=== PATIENT | male | born 1985 | race Caucasian/White ===

== ENCOUNTER 2018-10-18 13:41 | Emergency (ER) | payer SELFPAY ==
[~2018-10-18] VITALS: Ht 170.2 cm; Wt 61.2 kg
[2018-10-18 14:02] VITALS: BP 123/66
[2018-10-18] MEDS ORDERED: HYDR30CR6 RC (15:04)
--- NOTE | 2018-10-18 15:04 | PHYS DOC ---
Past Medical History Past Medical History: No Pertinent History Past Surgical History: No Surgical History Alcohol Use: None Drug Use: Marijuana Adult General Chief Complaint Chief Complaint: HEMORRHOIDS HPI HPI Patient is a 33 year old MALE presented to the ER today for evaluation of painful hemorrhoid for a few day. He has history of constipation. NO ABDOMINAL PAIN, NO NAUSEA OR VOMITING, NO FEVER. Review of Systems Review of Systems Constitutional: Denies fever or chills [] Eyes: Denies change in visual acuity, redness, or eye pain [] HENT: Denies nasal congestion or sore throat [] Respiratory: Denies cough or shortness of breath [] Cardiovascular: No additional information not addressed in HPI [] GI: Denies abdominal pain, nausea, vomiting, bloody stools or diarrhea RECTAL: POSITIVE FOR RECTAL PAIN WITH HEMORRHOID. : Denies dysuria or hematuria [] Musculoskeletal: Denies back pain or joint pain [] Integument: Denies rash or skin lesions [] Neurologic: Denies headache, focal weakness or sensory changes [] Endocrine: Denies polyuria or polydipsia [] All other systems were reviewed and found to be within normal limits, except as documented in this note. Physical Exam Physical Exam Constitutional: Well developed, well nourished, no acute distress, non-toxic appearance. [] HENT: Normocephalic, atraumatic, bilateral external ears normal, oropharynx moist, no oral exudates, nose normal. [] Eyes: PERRLA, EOMI, conjunctiva normal, no discharge. [] Neck: Normal range of motion, no tenderness, supple, no stridor. [] Cardiovascular:Heart rate regular rhythm, no murmur [] Lungs & Thorax: Bilateral breath sounds clear to auscultation [] Abdomen: Bowel sounds normal, soft, no tenderness, no masses, no pulsatile masses. RECTAL EXAM: NONTHROMBOSED EXTERNAL HEMORRHOID AT THE 9 OCLOCK POSITION, NO BLEEDING, NO RECTAL TEAR. Skin: Warm, dry, no erythema, no rash. [] Back: No tenderness, no CVA tenderness. [] Extremities: No tenderness, no cyanosis, no clubbing, ROM intact, no edema. [] Neurologic: Alert and oriented X 3, normal motor function, normal sensory fun ction, no focal deficits noted. [] Psychologic: Affect normal, judgement normal, mood normal. [] Current Patient Data Vital Signs Vital Signs Date Time Temp Pulse Resp B/P (MAP) Pulse Ox O2 Delivery O2 Flow Rate FiO2 10/18/18 14:02 97.6 61 16 123/66 (85) 97 Room Air 97.6 EKG EKG [] Radiology/Procedures Radiology/Procedures [] Course & Med Decision Making Course & Med Decision Making Pertinent Labs and Imaging studies reviewed. (See chart for details) [] Dragon Disclaimer Dragon Disclaimer This electronic medical record was generated, in whole or in part, using a voice recognition dictation system. Departure Departure Impression: Primary Impression: Hemorrhoids Disposition: HOME, SELF-CARE Condition: STABLE Referrals: CHIVO IBARRA MD Patient Instructions: Hemorrhoids Scripts Hydrocortisone/Pramoxine (ANALPRAM HC 2.5% CREAM) 30 Gm Cream.appl 1 SARA RC TID, #30 GM 2 Refills Prov: DEEPA MATTHEWS DO 10/18/18 DEEPA MATTHEWS DO Oct 18, 2018 15:04
== END 2018-10-18 15:12 | disposition home or self-care (01) ==
LOC: ER 13:41
DX: K64.4 Residual hemorrhoidal skin tags (principal)
CPT/HCPCS: 99283